=== PATIENT | female | born 1995 | race Caucasian/White ===

== ENCOUNTER 2017-10-07 13:51 | Emergency (ER) | payer OTHER ==
[~2017-10-07] VITALS: Ht 160 cm; Wt 44.0 kg
[2017-10-07 13:58] VITALS: TEMP 37.2; Ht 160 cm; Wt 44.0 kg
[2017-10-07] MEDS ORDERED: ACETAMINOPHEN 500 MG TAB PO STA (14:44)
[2017-10-07] MEDS ORDERED: ONDANSETRON INJ 2 MG/ML 2 ML VIAL IV STA (14:44)
[2017-10-07] MEDS ORDERED: KETOROLAC TROMETHAMINE 30 MG/ML VIAL IV STA (14:44)
[2017-10-07] MEDS ORDERED: DROSPIRENONE PO (14:49)
[2017-10-07] MEDS ORDERED: ETHINYL ESTRADIOL PO (14:49)
--- NOTE | 2017-10-07 16:23 | EMERGENCY ROOM VISIT NOTE ---
History Report prepared by Tayloriblita: Arcenio Victoria Under the Supervision of: Dr. Rico Arciniega M.D. First contact with patient: 14:13 Chief Complaint: ILLNESS Stated Complaint: DIZZY,STOMACH PAIN,LOW BP,FEVER,HEADACHE History of Present Illness The patient is a 22 year old white female with a PMH of hernia repair who presents to the ED with a cc of persistent generalized illness beginning a few days ago. Symptoms include resolved left arm rash, nausea, dizziness, fevers, headache, and abdominal pain. Had diarrhea last night. Also complains of generalized back aching. Seen at [facility] for similar symptoms (had negative flu testing, urinalysis, blood work) and was referred to the ED due to low blood pressure. Concerned about toxic shock syndrome due to having a tampon in for 13 hours three days ago. Denies recent changes in creams, or detergents. Negative vomiting or neck pain. Source of History: patient Onset: A few days ago Position: other (generalized) Quality: other (illness) Timing: other (persistent) Associated Symptoms: + fevers, + headache, + nausea, + back pain ( generalized, aching), + diarrhea (last night), + rash (resolved, left arm), No neck pain, No vomiting Note: Symptoms include dizziness. Review of Systems See HPI for pertinent positives and negatives. A total of ten systems were reviewed and were otherwise negative. Past Medical & Surgical Medical Problems: (1) No Known Active Medical Problems Surgical Problems: (1) H/O hernia repair Family History No pertinent family history stated. Social History Alcohol Use: occasionally Occupation Status: [employer] student Current/Historical Medications Scheduled [Ocella Control], 1 TAB PO DAILY Allergies Coded Allergies: Codeine (Unverified Adverse Reaction, Mild, MAKES STOMACH UPSET WHEN SHE TAKES IT, 10/07/17) Physical Exam Vital Signs Date Time Temp Pulse Resp B/P (MAP) Pulse Ox O2 Delivery O2 Flow Rate FiO2 10/07/17 16:29 69 20 99/60 98 Room Air 10/07/17 13:58 37.2 83 16 114/72 96 Room Air Physical Exam GENERAL: Awake, alert, well-appearing, NAD HENT: Normocephalic, atraumatic. EYES: Normal conjunctiva. Sclera non-icteric. NECK: Supple. No nuchal rigidity. FROM. No signs of meningismus. RESPIRATORY: CTAB, no rhonchi, wheezing, crackles CARDIAC: RRR, no MRG ABDOMEN: Soft, BS+. Mild abdominal discomfort. Non-surgical abdomen. No CVA TTP. MSK: No chest wall TTP, no LE edema NEURO: CN 2-12 intact, 5/5 upper and lower extremity strength, no dysmetria, no drift, good finger to nose, no sensory deficits. SKIN: No rash or jaundice noted. Medical Decision & Procedures Laboratory Results Test 10/07/17 14:50 Urine Test NEG (NEG) Laboratory results reviewed by me Medications Administered Medications (Trade) Dose Ordered Sig/Britany Route Start Time Stop Time Status Last Admin Dose Admin Ketorolac Tromethamine (Toradol Inj) 30 mg NOW STAT IV 10/07/17 14:44 10/07/17 14:47 DC 10/07/17 15:22 30 MG Acetaminophen (Tylenol Tab) 1,000 mg NOW STAT PO 10/07/17 14:44 10/07/17 14:47 DC 10/07/17 15:22 1,000 MG Ondansetron HCl (Zofran Inj) 4 mg NOW STAT IV 10/07/17 14:44 10/07/17 14:47 DC 10/07/17 15:22 4 MG ED Course 1424: The patient was evaluated in room C8. A complete history and physical exam was performed. 1552: I reevaluated the patient. She is eating at bedside. She continues to complain of a headache. Discussed results and discharge instructions: she verbalized understanding and agreement. The patient is ready for discharge. 1612: I spoke with the patient's family over the phone and updated them on the patient's situation. Medical Decision The patient is a 22 year old white female with a PMH of hernia repair who presents to the ED with a cc of persistent generalized illness beginning a few days ago. Records reviewed from [facility]: Patient has a normal WBC count at 6900. No left shift. Normal H&H. Normal platelet count. BNP normal. LFTs normal. Flu negative. Differential diagnosis: Etiologies such as viral syndrome, otitis, pharyngitis, pneumonia, influenza, meningitis, urinary tract infection, sepsis, bacteremia, as well as others were entertained. Patient was seen and evaluated the bedside. Patient was referred from [facility] for concern of hypotension as well as possible toxic shock syndrome. Patient did complain of a mild rash but denied any other contacts or changes in creams or detergents. Patient is not taking any recent antibiotics. Patient does not complain of any pelvic discomfort. Patient has had some mild diffuse abdominal discomfort but without any vomiting. Patient does complain of mild headache. Patient has a fairly benign abdomen and it is nonsurgical. Patient states headache is frontal back and dull. Patient has a nonfocal neurologic exam and no recent trauma. Given the patient's fairly reassuring blood work and a negative flu swab I do not believe that the patient requires any more blood work here today. The patient did not have a urine test completed which is completed here in the emergency department. This was negative. Patient was given symptomatic treatment for her headache. Upon reassessment the patient is very well-appearing. The patient is not had very low blood pressures here given the patient's slim build and being a young female without any compensatory tachycardia she may have some lower blood pressures at baseline. Patient has had fairly normal blood pressures here in the department. Patient is not lightheaded or dizzy. I did reassess the patient was eating at the bedside. Patient states her headache only mildly proved. I do not believe the patient has any sort of toxic shock. I do not believe she needs any more blood work. I did discuss the patient with her parents at her request. Patient was deemed suitable for outpatient follow-up and treatment at this time. Patient was counseled on making sure that she removes her tampons in a timely fashion and to be watchful for any worsening headaches, neuro symptoms, or rashes. Patient was given strict follow-up, discharge, and return precautions. All questions were answered. Patient was deemed suitable for outpatient follow-up at this time. Patient agreed with the plan of care and was safely discharged home. Medication Reconcilliation Current Medication List: was personally reviewed by me Blood Pressure Screening Patient's blood pressure: Normal blood pressure Blood pressure disposition: Did not require urgent referral Impression Primary Impression: Viral illness Additional Impression: Headache Scribe Attestation The scribe's documentation has been prepared under my direction and personally reviewed by me in its entirety. I confirm that the note above accurately reflects all work, treatment, procedures, and medical decision making performed by me. Departure Information Dispostion Home / Self-Care Referrals No Doctor, Assigned (PCP) [facility] Patient Instructions Headache Pain, My [facility], Tampons Sanitary Pads Ch Teen Additional Instructions Please return to the emergency department if you have worsening or recurrent symptoms not amenable to at-home treatment. Please call for a follow-up appointment with her primary care physician. Please take your medications as prescribed. If you have other concerns and/or complaints please feel free to also call your primary care physician's office or return the ED for further evaluation, management, and treatment. You were found to have an elevated blood pressure today (>120 sytolic or >90 diastolic). Per medicare guidelines, you need to follow up with this blood pressure screening with your Primary Care Physician (PCP). For a new PCP call [phone]. You received narcotic or benzodiazepene medication while in the emergency room today. This is an addictive medication that may cause drowziness as well as constipation. Do not drive, operate heavy machinery, or drink alcohol under the influence of this medication. You may take 400 mg Ibuprofen every 6 hours as needed for pain with food for no more than 2 consecutive days. You may take tylenol 650 mg every 6 hours as needed for pain. You may take motrin and tylenol separately or at the same time. Take your medications as prescribed. You have been examined and treated today on an emergency basis only. This is not a substitute for, or an effort to provide, complete comprehensive medical care. It is impossible to recognize and treat all injuries or illnesses in a single emergency department visit. It is therefore important that you follow up closely with [facility], your PCP, and/or your specialist(s). Call as soon as possible for an appointment. Thank you for your time and consideration. I look forward to speaking with you again soon. Please don't hesitate to call us if you have any questions. Problem Qualifiers
[2017-10-07 16:29] VITALS: BP 99/60; PULSE 69; O2SAT 98
== END 2017-10-07 16:35 | disposition home or self-care (01) ==
LOC: C.EDB 13:53 → C.EDC 16:35
DX: R69 Illness, unspecified (principal); R51 Headache

== ENCOUNTER → 2017-12-10 | Outpatient (CLI) | payer OTHER ==
[~2017-12-10] MED LIST: DROSPIRENONE PO; ETHINYL ESTRADIOL PO; OPTIRAY 320 IV PRN
--- NOTE | 2017-12-10 18:59 | DIAGNOSTIC IMAGING REPORT ---
CHEST CT WITH CONTRAST CT DOSE: 175.31 mGy.cm HISTORY: Acute cough with flulike symptoms COUGH, FLU TECHNIQUE: Multiaxial CT images of the chest were performed following the intravenous administration of contrast. A dose lowering technique was utilized adhering to the principles of ALARA. COMPARISON: None. FINDINGS: Thyroid is homogeneous. Mild residual thymic tissue of the anterior mediastinum. No definite pathologic adenopathy identified. Mildly prominent subcarinal lymph node measures 1.2 x 0.7 cm. Heart is normal in size without pericardial effusion. Thoracic aorta is normal in both course and caliber without aneurysm or dissection. Evaluation of the main pulmonary artery is limited secondary to cardiac motion. The opacified pulmonary arterial tree is unremarkable without evidence of pulmonary thromboembolic disease. There is no pneumothorax, pleural effusion, focal airspace consolidation or overt pulmonary edema. No pulmonary nodules or masses. Central airways are patent. No acute process of the imaged upper abdomen. Soft tissues and breast parenchyma appear unremarkable. Bones appear intact. IMPRESSION: No acute intrathoracic abnormality identified. No pathologic adenopathy or focal airspace consolidation to suggest pneumonia. Electronically signed by: Bear Diaz M.D. 12/10/2017 6:58 PM Dictated Date/Time: 12/10/2017 6:53 PM
== END | disposition home or self-care (01) ==
LOC: C.CTS 17:41
PROVIDERS: ATTEND Physician Assistant Medical
DX: R05 Cough (principal); J11.1 Influenza due to unidentified influenza virus with other respiratory manifestations